=== PATIENT | male | born 1975 | race Caucasian/White ===

== ENCOUNTER 2017-08-22 16:51 | Emergency (ER) | payer SELFPAY ==
[~2017-08-22] VITALS: Ht 175.3 cm; Wt 98.0 kg
[2017-08-22 16:53] VITALS: BP 168/105; PULSE 127; RESP 18; TEMP 98.1; O2SAT 98
[2017-08-22 16:57] VITALS: PULSE 96
[2017-08-22] MEDS ORDERED: LISI10TA3 PO (19:45)
[2017-08-22] MEDS ORDERED: AUGM875T3 PO (19:49)
[2017-08-22] MEDS ORDERED: CIPR0.3S EACH EAR (19:49)
--- NOTE | 2017-08-22 19:49 | PD ---
HPI Chief Complaint: Cold / Flu Symptoms Time Seen by Provider: 19:34 Travel History International Travel<30 days: No Contact w/Intl Traveler<30days: No Traveled to known affect area: No History of Present Illness HPI 42-year-old white male presents to emergency department complaints of left ear pain and cold symptoms over the past week. He states that he had some itching and irritation in his right ear. He has been using hydrogen peroxide. He states now that he has decreased hearing in his ear and he is developing pain when he lays on his ear. He's had a sore throat with some dryness a scratchiness. Some runny nose, cough and general malaise. Some nausea but no vomiting. No abdominal pain or diarrhea. No urinary symptoms. No shortness of breath or wheezing. Symptoms are mild but can be moderate when he lays on his ear. No alleviating factors. PFSH Past Medical History Narrative Medical Hypertension Tetanus Vaccination: < 5 Years Past Surgical History Surgical History: No Previous Surgery Social History Alcohol Use: Yes Tobacco Use: No Allergies-Medications (Allergen,Severity, Reaction): Coded Allergies: No Known Allergies (Unverified , 08/22/17) Review of Systems Except as stated in HPI: all other systems reviewed are Neg Physical Exam Narrative GENERAL: Well-developed, well-nourished in no acute distress. Nontoxic appearing. HEAD: Normocephalic, atraumatic. EYES: Pupils equal round and reactive. Extraocular motions intact. No scleral icterus. No injection or drainage. ENT: The right TM is nonvisualized due to edema in the canal along with exudate. Patient has tenderness to palpation of the pinna and tragus. The left TMs clear without erythema. The left external auditory canal has mild edema and erythematous. Nose: clear . Posterior pharynx is pink and moist. Positive tonsillar edema but no exudate. Uvula midline. Airway patent. NECK: Trachea midline.Supple, nontender, moves head freely. No central bony tenderness or spasm. CARDIOVASCULAR: Regular rate and rhythm without murmurs, gallops, or rubs. RESPIRATORY: Clear to auscultation. Breath sounds equal bilaterally. No wheezes , rales, or rhonchi. GASTROINTESTINAL: Abdomen soft, non-tender, nondistended. No hepato-splenomegaly , or palpable masses. No guarding. EXTREMITIES: No clubbing, cyanosis, or edema. No joint tenderness, effusion, or edema noted. BACK: Nontender without deformity or crepitance. No flank tenderness. Data Data Last Documented VS Vital Signs Date Time Temp Pulse Resp B/P (MAP) Pulse Ox O2 Delivery O2 Flow Rate FiO2 08/22/17 16:57 96 08/22/17 16:53 98.1 18 168/105 (126) 98 MDM Medical Decision Making Medical Screen Exam Complete: Yes Emergency Medical Condition: Yes Medical Record Reviewed: Yes Differential Diagnosis Differential diagnoses: Strep throat, viral URI, otitis media, otitis externa Narrative Course Patient's right TM cannot be visualized. He has some mild tonsillar edema and erythema. He has what appears to be an otitis externa. The patient will be empirically treated with oral antibiotics as well as Ciprodex. This is right otitis externa, URI Diagnosis Primary Impression: right otitis external Additional Impression: URI Patient Instructions: General Instructions Additional Instructions: Rest. Increase fluids. Ciprodex and Augmentin. Tylenol or Advil for any fever or pain. Follow-up with a primary care doctor in 1 week. Return to the ER if any problems. Med/Other Pt SpecificInfo: Prescription(s) given Disposition: 01 DISCHARGE HOME Condition: Stable García Gallegos Aug 22, 2017 19:49
== END 2017-08-22 20:18 | disposition home or self-care (01) ==
LOC: NEPD 16:51
DX: H60.91 Unspecified otitis externa, right ear (principal); J06.9 Acute upper respiratory infection, unspecified
CPT/HCPCS: 99284

== ENCOUNTER 2017-08-29 00:05 | Emergency (ER) | payer SELFPAY ==
[~2017-08-29] VITALS: Ht 177.8 cm; Wt 85.0 kg
[~2017-08-29 00:05] MED LIST: AUGM875T3 PO; CIPR0.3S EACH EAR; LISI10TA3 PO
[2017-08-29 00:08] VITALS: BP 175/113; PULSE 103; RESP 18; TEMP 97.9; O2SAT 99
[2017-08-29] MEDS ORDERED: NEOM1SOL7 EACH EAR (00:24)
--- NOTE | 2017-08-29 00:30 | PD ---
HPI Chief Complaint: ENT Complaint Time Seen by Provider: 00:13 Travel History International Travel<30 days: No Contact w/Intl Traveler<30days: No Traveled to known affect area: No History of Present Illness HPI 42-year-old male presents to emergency department with complains of worsening ear pain. This is a patient who had seen earlier last week and prescribed Ciprodex and Augmentin. He states that he could not afford the Ciprodex purchased the Augmentin. He states that he has had worsening pain in his ears. He has been using frve-hea-clshodu sweet oil without relief. He states the pain is severe. He is now having problems with his hearing. No alleviating factors. PFSH Past Medical History Diminished Hearing: No Hypertension: Yes Immunizations Current: Yes Tetanus Vaccination: Unknown Influenza Vaccination: No Social History Alcohol Use: Yes Tobacco Use: No Substance Use: No Allergies-Medications (Allergen,Severity, Reaction): Coded Allergies: No Known Allergies (Unverified , 08/29/17) Reported Meds & Prescriptions Reported Meds & Active Scripts Active Mpmvwxed-Bslydvkum-RG Otic Drops 3.5-10,000-1 Mg-Units-% Soln 4 Drop EACH EAR QID 10 Days Augmentin (Amoxicillin-Clavulanate) 875-125 Mg Tab 1 Tab PO BID 10 Days Ciprodex Otic Drops (Ciprofloxacin-Dexamethasone Otic Drops) 0.3-0.1% Susp 4 Drop EACH EAR BID 10 Days Reported Lisinopril 10 Mg Tab 10 Mg PO DAILY Review of Systems General / Constitutional: No: Fever Eyes: No: Visual changes HENT: Positive: Sore Throat, Congestion, Ear Discharge, Earache, No: Headaches Cardiovascular: No: Chest Pain or Discomfort Respiratory: No: Shortness of Breath Gastrointestinal: No: Abdominal Pain Genitourinary: No: Dysuria Musculoskeletal: No: Pain Skin: No Rash Neurologic: No: Weakness Psychiatric: No: Depression Endocrine: No: Polydipsia Hematologic/Lymphatic: No: Easy Bruising Physical Exam Narrative GENERAL: Well-developed, well-nourished in no acute distress. Nontoxic appearing. HEAD: Normocephalic, atraumatic. EYES: Pupils equal round and reactive. Extraocular motions intact. No scleral icterus. No injection or drainage. ENT: TMs are nonvisualized due to a large amount of exudate and edema in the canals.. The positive external auditory tenderness and edema. Pain in both pinna and tragus.. Nose: clear . Posterior pharynx is pink and moist. No tonsillar edema or exudate. Uvula midline. Airway patent. NECK: Trachea midline.Supple, nontender, moves head freely. No central bony tenderness or spasm. CARDIOVASCULAR: Regular rate and rhythm without murmurs, gallops, or rubs. RESPIRATORY: Clear to auscultation. Breath sounds equal bilaterally. No wheezes , rales, or rhonchi. GASTROINTESTINAL: Abdomen soft, non-tender, nondistended. No hepato-splenomegaly , or palpable masses. No guarding. EXTREMITIES: No clubbing, cyanosis, or edema. No joint tenderness, effusion, or edema noted. BACK: Nontender without deformity or crepitance. No flank tenderness. Data Data Last Documented VS Vital Signs Date Time Temp Pulse Resp B/P (MAP) Pulse Ox O2 Delivery O2 Flow Rate FiO2 08/29/17 00:08 97.9 103 18 175/113 (133) 99 MDM Medical Decision Making Medical Screen Exam Complete: Yes Emergency Medical Condition: Yes Medical Record Reviewed: Yes Differential Diagnosis Differential diagnoses: Otitis media, otitis externa, mastoiditis, pharyngitis Narrative Course The patient's TMs are extremely edematous and tender. Patient's given Alcaine drops to both ears. He has been encouraged to fill a Cortisporin otic antibiotic. This is otitis externa Diagnosis Primary Impression: Otitis externa Qualified Codes: H60.503 - Unspecified acute noninfective otitis externa, bilateral Referrals: [facility] 3 days Patient Instructions: General Instructions Additional Instructions: Rest. Cortisporin otic drops. Finish your antibiotic. Tylenol every 4 hours. Ibuprofen every 6 hours. Follow-up with his clinic this week. Med/Other Pt SpecificInfo: Prescription(s) given Scripts Ujjybymt-Yzaevjxmf-NP Otic Drops (Aixflylb-Suekcvhad-OF Otic Drops) 3.5-10,000- 1 Mg-Units-% Soln 4 DROP EACH EAR QID for Infection for 10 Days, BOTTLE 0 Refills Prov: Leo Pope MD 08/29/17 Disposition: DISCHARGE HOME Condition: Stable García Gallegos Aug 29, 2017 00:30
[2017-08-29] MEDS ORDERED: AUGM500T7 PO (00:34)
[2017-08-29] MEDS ORDERED: LISI10TA3 PO (00:34)
== END 2017-08-29 01:06 | disposition home or self-care (01) ==
LOC: NEPD 00:05
DX: H60.93 Unspecified otitis externa, bilateral (principal); J02.9 Acute pharyngitis, unspecified; I10 Essential (primary) hypertension; Z79.899 Other long term (current) drug therapy
CPT/HCPCS: 99283